=== PATIENT | male | born 1950 | race Caucasian/White ===

== ENCOUNTER → 2016-04-17 | Outpatient (CLI) | payer MEDICARE, OTHER | LOC: NM 07:48 | DX: C61 Malignant neoplasm of prostate (principal); C79.51 Secondary malignant neoplasm of bone; Z87.891 Personal history of nicotine dependence; Z88.8 Allergy status to other drugs, medicaments and biological substances; Z88.1 Allergy status to other antibiotic agents | CPT/HCPCS: 78306; A9503 ==

== ENCOUNTER → 2016-06-01 | Outpatient (CLI) | payer MEDICARE, OTHER | LOC: EMI 05-31 16:30 → KOH-I 10:04 | DX: C61 Malignant neoplasm of prostate (principal); C79.51 Secondary malignant neoplasm of bone; Z87.891 Personal history of nicotine dependence | CPT/HCPCS: 73130 ==

== ENCOUNTER → 2016-07-24 | Outpatient (CLI) | payer MEDICARE, OTHER | LOC: NM 07:31 | DX: C61 Malignant neoplasm of prostate (principal); C79.51 Secondary malignant neoplasm of bone; Z87.891 Personal history of nicotine dependence | CPT/HCPCS: 78306; A9503 ==